=== PATIENT | female | born 1960 | race Caucasian/White ===

== ENCOUNTER → 2025-02-26 14:26 | Outpatient (REF) | payer OTHER, SELFPAY | LOC: WDC 14:26 | PROVIDERS: ATTENDING PHYSICIAN Specialist; FAMILY PHYSICIAN Family Medicine; OTHER PHYSICIAN Surgery | DX: N63.20 Unspecified lump in the left breast, unspecified quadrant (principal) | CPT/HCPCS: 76642 ==

== ENCOUNTER → 2025-07-01 12:12 | Outpatient (REF) | payer OTHER, SELFPAY | LOC: MRI 3T 12:12 | PROVIDERS: ATTENDING PHYSICIAN Surgery; FAMILY PHYSICIAN Family Medicine; OTHER PHYSICIAN Specialist | DX: N63.21 Unspecified lump in the left breast, upper outer quadrant (principal); Z80.3 Family history of malignant neoplasm of breast | CPT/HCPCS: 77049; A9585 ==